=== PATIENT | female | born 1945 | race Caucasian/White ===

== ENCOUNTER 2016-09-16 15:25 | Emergency (ER) | payer MEDICARE ==
--- NOTE | 2016-09-16 15:54 | UC ---
Respiratory Complaint HPI - HPI Summary HPI Summary: 1 WEEK OF COUGH, CONGESTION AND RIGHT SIDED SINUS PRESSURE AND LONG. FEELS WHEEZY BUT NOT SOB. NO FEVER, ST, N/V/D. DENIES DIZZINESS OR BLURRY VISION. STATES SX GOT A LOT WORSE LAST NIGHT AND TODAY SHE FEELS "AWFUL". TERRIBLE PAIN IN RIGHT SIDE OF HEAD. PT IS HOLDING ICE PACK TO HEAD. HAS A H/O HTN BUT DOES NOT TAKE ANY MEDS. PCP DR. HERNANDEZ. - History of Current Complaint Chief Complaint: UCRespiratory Stated Complaint: URI Time Seen by Provider: 09/16/16 15:41 Hx Obtained From: Patient Onset/Duration: Gradual Onset, Lasting Days, Still Present Timing: Constant Severity Initially: Moderate Severity Currently: Severe Pain Intensity: 9 Pain Scale Used: 0-10 Numeric Character: Cough: Nonproductive Aggravating Factors: Nothing Alleviating Factors: OTC Meds - DAYQUIL Associated Signs And Symptoms: Positive: URI, Nasal Congestion, Sinus Discomfort. Negative: Dyspnea, Fever, Chills, Pleuritic Chest Pain, Wheezing, Hemoptysis, Dizziness, Calf Pain, Calf Swelling, Edema - Allergies/Home Medications Allergies/Adverse Reactions: Allergies Allergy/AdvReac Type Severity Reaction Status Date / Time Magnesium Hydroxide Allergy Intermediate Unknown Verified 09/16/16 15:39 [From Milk of Magnesia] Reaction Details Statins Allergy Intermediate Muscle Ache Verified 09/16/16 15:39 Home Medications: Home Medications Glaucoma Eye Drops 1 drop QPM 09/16/16 [History] PMH/Surg Hx/FS Hx/Imm Hx - Additional Past Medical History Additional PMH: GLAUCOMA Endocrine History Of: Reports: Diabetes Denies: Thyroid Disease Cardiovascular History Of: Reports: Hypertension - No meds Denies: Cardiac Disorders Respiratory History Of: Denies: COPD, Asthma GI/ History Of: Reports: Renal Disease - IDDM/ HTN Denies: Ulcer Cancer History Of: Denies: Breast Cancer - Surgical History Surgical History: Yes Surgery Procedure, Year, and Place: Left ankle surgery, hernia repair 2007, spine surgery, cholecystectomy - Family History Known Family History: Positive: Hypertension - Social History Alcohol Use: Occasionally Substance Use Type: None Smoking Status (MU): Never Smoked Tobacco - Immunization History Most Recent Influenza Vaccination: 2016 Most Recent Tetanus Shot: Unk Most Recent Pneumonia Vaccination: UTD Review of Systems Constitutional: Negative ENT: Nasal Discharge Respiratory: Cough Cardiovascular: Negative Gastrointestinal: Negative Neurological: Headache All Other Systems Reviewed And Are Negative: Yes Physical Exam Triage Information Reviewed: Yes Appearance: Well-Appearing, Well-Nourished, Pain Distress - MILD Vital Signs: Initial Vital Signs Temp 98.4 F 09/16/16 15:42 Pulse 93 09/16/16 15:42 Resp 18 09/16/16 15:42 Pulse Ox 96 09/16/16 15:42 Vital Signs Reviewed: Yes Eyes: Positive: Conjunctiva Clear ENT: Positive: Hearing grossly normal, Pharynx normal, TMs normal Neck: Positive: Supple, Nontender, No Lymphadenopathy Respiratory: Positive: No respiratory distress, No accessory muscle use, Rhonchi - DIFFUSE, MILD RHONCHI Cardiovascular Exam: Normal Abdomen Description: Positive: Soft Musculoskeletal: Positive: No Edema Neurological: Positive: Alert Psychological: Positive: Age Appropriate Behavior Skin: Negative: rashes UC Diagnostic Evaluation - Laboratory O2 Sat by Pulse Oximetry: 96 - EKG Cardiac Rate: NL - 91 BPM Cardiac Rhythm: LBBB: New Ectopy: None Respiratory Course/Dx - Course Course Of Treatment: LONG DISCUSSION WITH PT ABOUT SERIOUS NATURE OF CONDITION - DANGEROUSLY ELEVATED BP, NEW LEFT BUNDLE BRANCH BLOCK IN ADDITION TO RESPIRATORY CONDITION. ADVISED THAT SHE COULD DECOMPENSATE AND THAT [facility]MEND[facility]. PT DECLINES TRANSFER TO [facility] [place]. WANTS TO GO TO [facility]. AMA FORM SIGNED. - Differential Dx/Diagnosis Provider Diagnoses: 1. LBBB - NEW. 2. HYPERTENSIVE URGENCY. 3. ACUTE BRONCHITIS Discharge - Discharge Plan Condition: Stable Disposition: AGAINST MEDICAL ADVICE Referrals: Compa Hernandez MD [Primary Care Provider] -
[2016-09-16 15:57] VITALS: BP 200/95
[2016-09-16] MEDS ORDERED: Acetaminophen TAB* 325 MG PO ONE (16:38)
== END 2016-09-16 16:55 | disposition left against medical advice (07) ==
LOC: UCEAST 15:25
DX: J40 Bronchitis, not specified as acute or chronic (principal); I44.7 Left bundle-branch block, unspecified; I16.0 Hypertensive urgency; E11.22 Type 2 diabetes mellitus with diabetic chronic kidney disease
CPT/HCPCS: 93005; 99212; A9270-GY; G0463

== ENCOUNTER 2017-07-18 18:32 | Emergency (ER) | payer MEDICARE ==
[2017-07-18] MEDS ORDERED: Azithromycin TAB* 250 MG PO ONE (20:39)
[2017-07-18 20:59] VITALS: BP 164/74
--- NOTE | 2017-07-20 19:37 | ED ---
Aung Burleson Abhishek, scribed for Brynn Shipley MD on 07/18/17 at 2042 . Neck Pain - HPI Summary HPI Summary: This patient is a 71 year old F presenting to [facility] accompanied by friend with a chief complaint of neck pain since few days ago. The pain is described as radiating to the cheeks and ears. The patient states she was given a flu shot while she was sick. Medications were reviewed; the patient states she stopped taking blood pressure medication, and they cant give her cholesterol medication due to myalgia. The patient rates the pain 8/10 in severity. Symptoms aggravated by activity such as coughing Symptoms alleviated by nothing. Patient reports difficulty swallowing, body aches, fever and Hypertensive, edema on a LE. Patient denies chest pain, SOB, and blurred vision * - History of Current Complaint Chief Complaint: EDNeckComplaint Stated Complaint: NECK PAIN Hx Obtained From: Patient, Other: - friend Onset/Duration Of Injury/Symptoms: Days - few days ago Timing: Constant Onset/Duration: Gradual Onset, Started days ago - few days ago, Still Present Severity Initially: Severe Severity Currently: Severe Pain Intensity: 8 Pain Scale Used: 0-10 Numeric Location: Radiates To: - ears and cheeks Aggravating Factors: Nothing Alleviating Factors: Nothing Associated Signs & Symptoms: Positive: Swelling - LE, Fever - Allergies/Home Medications Allergies/Adverse Reactions: Allergies Allergy/AdvReac Type Severity Reaction Status Date / Time Magnesium Hydroxide Allergy Intermediate Unknown Verified 09/16/16 15:39 [From Milk of Magnesia] Reaction Details Statins Allergy Intermediate Muscle Ache Verified 09/16/16 15:39 PMH/Surg Hx/FS Hx/Imm Hx Endocrine/Hematology History: Reports: Hx Diabetes Denies: Hx Thyroid Disease Cardiovascular History: Reports: Hx Hypertension - No meds Respiratory History: Denies: Hx Asthma, Hx Chronic Obstructive Pulmonary Disease (COPD) GI History: Denies: Hx Ulcer History: Reports: Hx Renal Disease - IDDM/ HTN Musculoskeletal History: Denies: Hx Rheumatoid Arthritis, Hx Osteoporosis - Cancer History Hx Chemotherapy: No Hx Radiation Therapy: No - Surgical History Surgery Procedure, Year, and Place: Left ankle surgery, hernia repair 2007, spine surgery, cholecystectomy Infectious Disease History: No Infectious Disease History: Reports: Hx of Known/Suspected MRSA Denies: Hx Hepatitis, Hx Human Immunodeficiency Virus (HIV), Traveled Outside the [place] in Last 30 Days - Family History Known Family History: Positive: Hypertension, Other - Reviewed and noncontributory - Social History Lives: With Family Alcohol Use: Occasionally Substance Use Type: Reports: None Smoking Status (MU): Never Smoked Tobacco Review of Systems Positive: Fever ENT: Other - difficulty swallowing Cardiovascular: Other - hypertensive Negative: Cough Gastrointestinal: Other - hematochezia Negative: Vomiting, Nausea Negative: burning, hematuria Musculoskeletal: Other - neck pain Positive: Myalgia - body aches Skin: Negative Neurological: Negative Psychological: Normal All Other Systems Reviewed And Are Negative: No Physical Exam - Summary Physical Exam Summary: Appearance: Alert, conversive, nontoxic appearing Skin: Warm, dry, no mottling, no rashes, no contusions HEENT: EOMI, PERRL, Post pharyngeal erythema Neck: No masses on the neck, supple Respiratory: Clear to auscultation, breath sounds present, no rales, no rhonchi , no wheezes Cardiovascular: RRR, pulses are symmetrical in both lower and upper extremities Abdomen: Soft, non-tender Bowel Sounds: Present Musculoskeletal: Post-Surgical Adenopathy on the left Neurological: A&Ox3, CN II-XII Intact, moving all extremities symmetrically Psychiatric: Normal affect and mood Triage Information Reviewed: Yes Vital Signs On Initial Exam: Initial Vitals Temp Pulse Resp BP Pulse Ox 100.9 F 92 18 165/121 96 07/18/17 18:34 07/18/17 18:34 07/18/17 18:34 07/18/17 18:34 07/18/17 18:34 Vital Signs Reviewed: Yes - Isabelle Coma Scale Coma Scale Total: 15 Diagnostics - Vital Signs Vital Signs Temp Pulse Resp BP Pulse Ox 07/18/17 18:34 100.9 F 92 18 165/121 96 - Laboratory Lab Statement: Any lab studies that have been ordered have been reviewed, and results considered in the medical decision making process. Neck Course/Dx - Course Course Of Treatment: The patient will be discharged home. The dx will be URI and hypertension. The patient is recommended to follow up with her PCP as needed and given medication (Azithromycin). - Diagnoses Provider Diagnoses: Hypertension, URI (upper respiratory infection) Discharge - Discharge Plan Condition: Stable Disposition: HOME Prescriptions: Azithromycin TAB* [Zithromax TAB (Z-SHIV) 250 mg #6 tabs] 250 mg PO DAILY 4 Days #4 tab Patient Education Materials: Upper Respiratory Infection (ED), Hypertension (ED ) Referrals: Caesar Galaviz MD [Primary Care Provider] - Additional Instructions: Take the azithromycin as instruction. Return if worse or any new symptoms. Please make an appt with your doctor to discuss your hypertension and the need to be on medications. Take tylenol and motrin for pain. The documentation as recorded by the Aung colunga Abhishek accurately reflects the service I personally performed and the decisions made by , Brynn Shipley MD.
== END 2017-07-18 20:58 | disposition home or self-care (01) ==
LOC: ED 18:32
DX: J06.9 Acute upper respiratory infection, unspecified (principal); I10 Essential (primary) hypertension; M54.2 Cervicalgia; E11.9 Type 2 diabetes mellitus without complications; Z86.14 Personal history of Methicillin resistant Staphylococcus aureus infection; Z90.49 Acquired absence of other specified parts of digestive tract
CPT/HCPCS: 99282; A9270-GY

== ENCOUNTER 2018-08-17 00:30 | Observation (INO) | payer MEDICARE ==
--- NOTE | 2018-08-17 00:38 | ED ---
Abdominal Pain/Female - HPI Summary HPI Summary: A 72 y/o F brought in by ambulance presents to ED with c/o intermittent lower abd pain, moreso on R, onset hours [employer]. The pain is described as cramping. At bedside, she rates her abd pain as 0 out of 10. Pt felt OK earlier in the day. She ate mild tacos with beef today. She does not normally eat beef. A few hours later, she began to have lower abd pain. Associated sx: bloating. Denies CP, SOB , n/v, urinary sx, constipation. Aggravating: movement. PMHx: HTN, DM, HDL. Cholecystectomy, she says she has mesh in her abd. Her last surgery was in 2007. Patient lives alone. - History of Current Complaint Stated Complaint: ABD PAIN Hx Obtained From: Patient Onset/Duration: Lasting Hours, Still Present Timing: Intermittent Episode Lasting Severity Initially: Moderate Severity Currently: Mild Pain Intensity: 0 Pain Scale Used: 0-10 Numeric Location: Diffuse - lower Character: Cramping Aggravating Factor(s): Movement Associated Signs and Symptoms: Positive: Other: - pos: bloating. neg: SOB.. Negative: Chest Pain, Constipation, Urinary Symptoms, Nausea, Vomiting Allergies/Adverse Reactions: Allergies Allergy/AdvReac Type Severity Reaction Status Date / Time MS Magnesium Hydroxide Allergy Intermediate Unknown Verified 09/16/16 15:39 [From Milk of Magnesia] Reaction Details MS Statins [Statins] Allergy Intermediate Muscle Ache Verified 09/16/16 15:39 PMH/Surg Hx/FS Hx/Imm Hx Previously Healthy: No Endocrine/Hematology History: Reports: Hx Diabetes Denies: Hx Thyroid Disease Cardiovascular History: Reports: Hx Hypercholesterolemia, Hx Hypertension - No meds Respiratory History: Denies: Hx Asthma, Hx Chronic Obstructive Pulmonary Disease (COPD) GI History: Denies: Hx Ulcer History: Reports: Hx Renal Disease - IDDM/ HTN Musculoskeletal History: Denies: Hx Rheumatoid Arthritis, Hx Osteoporosis - Cancer History Hx Chemotherapy: No Hx Radiation Therapy: No - Surgical History Surgery Procedure, Year, and Place: Left ankle surgery, hernia repair 2007, spine surgery, cholecystectomy Infectious Disease History: Reports: Hx of Known/Suspected MRSA Denies: Hx Hepatitis, Hx Human Immunodeficiency Virus (HIV) - Family History Known Family History: Positive: Hypertension - Social History Occupation: Retired Lives: Alone Alcohol Use: Occasionally Hx Substance Use: No Substance Use Type: Reports: None Hx Tobacco Use: No Smoking Status (MU): Never Smoked Tobacco Review of Systems Negative: Chest Pain Negative: Shortness Of Breath Positive: Abdominal Pain, Other - pos: bloated. neg: constipation. Negative: Vomiting, Nausea Negative: dysuria, hematuria All Other Systems Reviewed And Are Negative: Yes Physical Exam - Summary Physical Exam Summary: Appearance: Well-appearing, Well-nourished, lying in bed comfortably Skin: Warm, dry, no obvious rash Eyes: sclera anicteric, no conjunctival pallor ENT: mucous membranes moist, pharynx appears normal Neck: Supple, nontender Respiratory: Clear to auscultation, no signs of respiratory distress Cardiovascular: Normal S1, S2. No murmurs. Normal distal pulses in tibial and radial bilaterally. Abdomen: Soft, nontender, normal active bowel sounds present, no hernias Musculoskeletal: Normal, Strength/ROM Intact Neurological: A&Ox3, awake and alert, mentation is normal, speech is fluent and appropriate Psychiatric: affect is normal, does not appear anxious or depressed Triage Information Reviewed: Yes Vital Signs Reviewed: Yes Diagnostics - Laboratory Result Diagrams: 08/17/18 00:55 08/17/18 00:55 Lab Statement: Any lab studies that have been ordered have been reviewed, and results considered in the medical decision making process. - CT A/P CT CT Interpretation Completed By: Radiologist Summary of CT Findings: IMPRESSION: 1. Mucosal thickening in the distal small bowel. Mesenteric descending with. mild ascites in the right paracolic gutter extending to the pelvis. Differential diagnosis includes acute diverticulitis and enteritis. No evidence. of bowel obstruction. 2. Colonic diverticulosis. 3. A small hiatal hernia. 4. A 3 mm calcific density in the right kidney which may represent. nonobstructing stones versus vascular calcification. No hydronephrosis. 5. Pneumobilia in the left hepatic lobe and within common bile duct. 6. A 0.7 cm left adrenal nodule. ED provider has reviewed this report. - EKG 0124 Cardiac Rate: NL - 66 bpm EKG Rhythm: Sinus Rhythm Summary of EKG Findings: LBBB Re-Evaluation - Re-Evaluation 1 Re-Evaluation Time: 04:39 Change: Improved Comment: Pain is controlled. Discussing CT results and possibility for admission. Abdominal Pain Fem Course/Dx - Course Course Of Treatment: Pt is a 72 y/o F brought in by ambulance presents to ED with c/o intermittent lower abd pain, moreso on R, onset hours [employer]. The pain is described as cramping. At bedside, she rates her abd pain as 0 out of 10. Pt felt OK earlier in the day. She ate mild tacos with beef today. She does not normally eat beef. A few hours later, she began to have lower abd pain. Associated sx: bloating. Denies CP, SOB, nausea, urinary sx, constipation. Aggravating: movement. PMHx: HTN, DM, HDL. Cholecystectomy with mesh in her abd. Her last surgery was in 2007. Patient lives alone. UA results show 1+ leukocyte esterase, 2+ glucose, and squamous epithelia and ascorbic acid are both present. EKG shows NSR at 66 bpm and LBBB. A/P CT shows "1. Mucosal thickening in the distal small bowel. Mesenteric descending with mild ascites in the right paracolic gutter extending to the pelvis. Differential diagnosis includes acute diverticulitis and enteritis. No evidence of bowel obstruction. 2. Colonic diverticulosis. 3. A small hiatal hernia. 4. A 3 mm calcific density in the right kidney which may represent. nonobstructing stones versus vascular calcification. No hydronephrosis. 5. Pneumobilia in the left hepatic lobe and within common bile duct. 6. A 0.7 cm left adrenal nodule.". Consulted with Dr. Way, hospitalist, who will see pt in ED. Dr. Way will admit patient. - Diagnoses Provider Diagnoses: Diverticulitis - Provider Notifications Discussed Care Of Patient With: Dania aWy - hospitalist Time Discussed With Above Provider: 04:46 Instructed by Provider To: Will See In ED - Will admit pt. Discharge - Sign-Out/Discharge Documenting (check all that apply): Patient Departure - ADMIT Patient Received Moderate/Deep Sedation with Procedure: No - Discharge Plan Condition: Stable Disposition: ADMITTED TO [facility] Referrals: Caesar Galaviz MD [Primary Care Provider] - - Attestation Statements Document Initiated by Scribe: Yes Documenting Scribe: Zoila Marcus Provider For Whom Scribe is Documenting (Include Credential): Dr. Mian Watters MD Scribe Attestation: I, Zoila Marcus, scribed for Dr. Mian Watters MD on 08/17/18 at 0533. Status of Scribe Document: Ready
[2018-08-17] MEDS ORDERED: NS 0.9% 1000 ML** 1,000 ML IV ONE (00:40)
[2018-08-17 01:05] LABS: ABS Basophils 0 10^3/ul (0-0.2); ABS Eosinophils 0.2 10^3/ul (0-0.6); ABS Monocytes 0.9 10^3/ul (0-0.8); ABS Neutrophils 10.1 10^3/ul (1.5-7.7); ABS Nucleated RBC 0 10^3/ul; Eosinophil % 1.7 %; Hematocrit 38 % (35-47); Hemoglobin 12.4 g/dl (12.0-16.0); Lymphocyte % 15.1 %; Mean Corpuscular HGB Conc 32 g/dl (31-36); Mean Corpuscular Hemoglobin 26 pg (27-31); Mean Corpuscular Volume 80 fL (80-97); Mean Platelet Volume 8.7 fL (7.4-10.4); Nucleated Red Blood Cells % 0; Platelet Count 237 10^3/ul (150-450); Red Blood Count 4.78 10^6/ul (4.00-5.40); Red Cell Distribution Width 16 % (10.5-15); White Blood Count 13.2 10^3/ul (3.5-10.8)
[2018-08-17 01:23] LABS: Albumin 3.8 g/dL (3.2-5.2); Albumin/Globulin Ratio 1.1 (1-3); BUN/Creatinine Ratio 36.1 (8-20); Calcium 9.2 mg/dL (8.6-10.3); EGFR Non-African American 95.9 (>60); Globulin 3.4 g/dL (2-4); Total Bilirubin 0.5 mg/dL (0.2-1.0); Total Protein 7.2 g/dL (6.4-8.9)
[2018-08-17 01:47] LABS: Potassium 3.9 mmol/L (3.5-5.0)
[2018-08-17 01:51] LABS: Urine Appearance Clear; Urine Bacteria Absent (Absent); Urine Bilirubin Negative (Negative); Urine Blood Negative (Negative); Urine Color Yellow; Urine Glucose 2+(150 mg/dL) (Negative); Urine Ketones Negative (Negative); Urine Nitrite Negative (Negative); Urine Protein Negative (Negative); Urine Red Blood Cell Absent (Absent); Urine Specific Gravity 1.023 (1.010-1.030); Urine Squamous Epithelial Cell Present (Absent); Urine Urobilinogen Negative (Negative); Urine White Blood Cell Trace(0-5/hpf) (Absent)
[2018-08-17] MEDS ORDERED: Iodixanol* (CONTRAST) 320 MG/ML 100 ML SDV IV ONE (03:04)
[2018-08-17] MEDS ORDERED: Piperacillin/Tazobac ADVAN(*) 3.375 GM in NS 0.9% 100 ML* 100 ML IVPB ONE (04:40)
[2018-08-17] MEDS ORDERED: NS 0.9% 100 ML* 100 ML ONE (04:50)
[2018-08-17 05:16] LABS: C Reactive Protein 11.9 mg/L (<8.01)
[2018-08-17] MEDS ORDERED: Dextrose 50% Syringe 50 ML* 25 GM/50 ML SYRINGE IV PUSH PRN (05:53)
[2018-08-17] MEDS ORDERED: Morphine INJ* 2 MG/ML 1 ML SYRINGE (TWO MG - NEW SYRINGE VERSION) IV PRN (05:55)
[2018-08-17] MEDS ORDERED: Ondansetron INJ* 2 MG/ML VIAL IV PRN (05:55)
[2018-08-17] MEDS ORDERED: Acetaminophen TAB* 325 MG PO PRN (05:55)
[2018-08-17] MEDS ORDERED: Al Hydrox/Mg Hydrox/Simet LIQ* 30 ML UDC PO PRN (05:55)
[2018-08-17] MEDS ORDERED: oxyCODONE/Acetamin 5/325 MG* TAB PO PRN (05:55)
[2018-08-17] MEDS ORDERED: Heparin VIAL(*) 5000 UNITS/ML VIAL (FIVE THOUSAND) SUBCUT SCH (06:00)
[2018-08-17] MEDS ORDERED: NS 0.9% 1000 ML** 1,000 ML IV SCH (06:00)
[2018-08-17] MEDS ORDERED: Zosyn per Pharmacy* NOTE FOLLOW UP PRN (07:22)
[2018-08-17] MEDS: Insulin LISPRO* 1 UNITS UNIT SUBCUT SCH ×2 (08:58→12:29)
[2018-08-17] MEDS ORDERED: Aspirin EC TAB* 81 MG TAB.EC PO SCH (09:00)
[2018-08-17] MEDS ORDERED: Piperacillin/Tazobac ADVAN(*) 3.375 GM in NS 0.9% 100 ML* 100 ML IVPB SCH (09:00)
[2018-08-17] MEDS ORDERED: Latanoprost 0.005%* 2.5 ml BTL RIGHT EYE SCH (09:00)
--- NOTE | 2018-08-17 11:47 | HP ---
CC: Dr. Galaviz * HISTORY AND PHYSICAL: DATE OF ADMISSION: 08/17/18 PRIMARY CARE PROVIDER: Dr. Galaviz. CHIEF COMPLAINT: Abdominal pain. HISTORY OF PRESENT ILLNESS: Janelle is a 72-year-old female with history of diabetes, hypertension, asthma who presented to the hospital complaining of crampy abdominal pain after she ate tacos today in the evening. The patient stated that the meat for the tacos was sitting defrosted for a couple of days until she cooked it. After she ate her dinner approximately an hour later, she started having crampy abdominal pain "all over." That pain was "building up to her chest." She denies any nausea or vomiting. She stated that eventually after she presented to the ED with the pain, the pain somewhat eased off and she started having diarrhea. She had a multiple episodes of diarrhea in the emergency room including one episode of bowel incontinence. Currently, her pain is 0/10, but she is photographer still in the right lower quadrant. Under the ED provider's recommendation, the patient is going to be placed on overnight observation with a diagnosis of likely diverticulosis. PAST MEDICAL HISTORY: 1. History of diabetes. 2. History of dyslipidemia. 3. History of hypertension. 4. Asthma. 5. History of aneurysm of splenic artery. 6. History of anxiety. 7. Degenerative disk disease. 8. History of left bundle-branch block. 9. History of left ankle fracture. 10. History of cholecystectomy in 2006, complicated postoperative septic shock and peritonitis. 11. History of incisional hernia repair in 2007. 12. History of cataract surgery on the left. 13. History of laminectomy in 1984. MEDICATIONS: At home include: 1. Saxagliptin 5 mg daily. 2. Xalatan eye drops 1 drop right eye daily. 3. Glipizide 10 mg b.i.d. 4. Glaucoma eye drops 1 drop q.p.m. 5. Aspirin 81 mg daily. 6. Ascorbic acid 1000 mg daily. ALLERGIES: MAGNESIUM HYDROXIDE and STATINS. FAMILY HISTORY: Positive for father who of pneumonia at the age of 77. Mother with history of diabetes who of stroke at the age of 74. SOCIAL HISTORY: The patient lives alone. There is no history of alcohol, drug use, or current tobacco use. She quit smoking in 1993. Her surrogate is her daughter, Claudia Reyna. REVIEW OF SYSTEMS: Please see history of present illness. All the remaining 12 systems were reviewed with the patient and were otherwise negative. PHYSICAL EXAMINATION GENERAL: The patient is a very pleasant 72-year-old female who is in no acute distress. Alert, awake and oriented x3. VITAL SIGNS: Blood pressure 162/83, heart rate of 72 and regular, respiratory rate 15, oxygen saturation 96% on room air, temperature 98.4. HEENT: Head: Atraumatic, normocephalic. Eyes: Pupils are equal, reactive to light and accommodation. Oropharynx clear. Mucosa moist. NECK: Supple. No JVD. No bruits bilaterally. RESPIRATORY: Clear to auscultation bilaterally. CARDIOVASCULAR: Regular rate and rhythm. No murmur. ABDOMEN: Soft, tender in right lower quadrant and lower mid abdomen with no rebound and no guarding. Bowel sounds are present in all 4 quadrants. EXTREMITIES: There is no edema. Pulses are +2 bilaterally. No clubbing or cyanosis. NEURO EVALUATION: Speech is clear. Cranial nerves II through XII grossly intact. Motor strength is 5/5 bilaterally. DIAGNOSTIC STUDIES/LAB DATA: Showed a sodium of 136, potassium 3.9, chloride 102, carbon dioxide 26, BUN 22, creatinine 0.6. Liver function tests unremarkable. C-reactive protein of 11.9, lipase of 94. White blood cell count of 13.2, hemoglobin of 12.4, hematocrit of 38, and platelets of 237. Urinalysis showed trace esterase, also present squamous epithelial cells, otherwise unremarkable. CT of the abdomen and pelvis, impression: "Mucosal thickening of the distal small bowel, mesenteric distending with mild ascites of the right paracolic gutter extending to the pelvis. Differential diagnosis includes acute diverticulitis or enteritis. No evidence of bowel obstruction. Colonic diverticulosis. A small hiatal hernia. A 3-mm calcified density in the right kidney, which may represent an obstructive stone versus vascular calcification. No hydronephrosis. Pneumobilia of the left hepatic lobe with a thin common bile duct. A 0.7 cm length adrenal nodule." The patient's EKG showed no left bundle-branch block with a high of 66 beats per minute. ASSESSMENT AND PLAN: 1. A 72-year-old female presented with abdominal pain after eating tacos today. Subsequently, she developed diarrhea. CT shows likely diverticulitis. The patient is going to be placed on overnight observation. She is going to be placed on clear liquid diet. We will obtain stool cultures and continue Zosyn that was started in the emergency room. 2. In regard to the patient's diabetes, the patient's oral hypoglycemics are going to be held and she is going to be placed on insulin sliding scale. 3. The patient's code status is full and her surrogate is her daughter. 4. For DVT prophylaxis, the patient is going to be placed on heparin subcutaneously. TIME SPENT: Approximately 55 minutes was spent on the admission of this patient , more than half of that time was spent [id number] with the patient during the interview and physical exam. [id number]/[facility] #: [id number] [place]
[2018-08-17 12:24] VITALS: BP 157/69
--- NOTE | 2018-08-18 04:37 | DS ---
DISCHARGE SUMMARY: DATE OF ADMISSION: 08/17/18 DATE OF DISCHARGE: 08/17/18 ADMITTING PROVIDER: Dr. Dania Way. ATTENDING PHYSICIAN ON DAY OF DISCHARGE: Pablo Henry MD PRIMARY CARE PROVIDER: Dr. Galaviz. CHIEF COMPLAINT: Abdominal pain, bloating, and then diarrhea. PRINCIPAL DIAGNOSES: Distal small bowel diverticulitis versus enteritis causing abdominal pain, bloating, and diarrhea. HISTORY OF PRESENT ILLNESS AND HOSPITAL COURSE: Janelle Reyna is a 72-year-old female with past medical history of [id number] diabetes mellitus, hypertension, asthma, hyperlipidemia, hernia repair in 2007 with routine mesh, and cholecystectomy in 2006, complicated by septic shock and peritonitis. She was in her normal state of health, when she ate some tacos with meat that had defrosted in the fridge for 2 days and also ate a quarter cup of roasted peanuts. A few hours after the tacos, she complained of right lower quadrant abdominal pain and abdominal bloating. She presented to the emergency room and there had multiple episodes of diarrhea. She was referred to the hospitalist service for admission after a CT abdomen and pelvis demonstrated, Impression: 1. Mucosal thickening in the distal small bowel. Mesenteric (I assume this is meant to be "stranding" instead of distending) with mild ascites in the right paracolic gutter extending into the pelvis. Differential diagnosis includes acute diverticulitis and enteritis. No evidence of bowel obstruction. 2. Colonic diverticulosis. 3. A small hiatal hernia. 4. A 3-mm calcific density in the right kidney, which may represent an obstructing stone versus vascular calcification. No hydronephrosis. 5. Pneumobilia in the left hepatic lobe and within the common bile duct. 6. A 0.7-cm left adrenal nodule." She had a slight leukocytosis of 13.2. CRP of 11.9 with a lipase minimally elevated at 94. Urinalysis was negative. She was afebrile, hemodynamically stable. She was admitted on observation status and continued on the Zosyn started in the emergency room. She felt much better within a few hours, was ambulating in the halls, had no return of the diarrhea, was a bit anxious about the diagnosis, but feeling well and anxious to go home. She is being discharged with 10 days of Cipro and Flagyl on recommendation to follow up with her primary care provider within the next week. DISCHARGE MEDICATIONS: Include: 1. Ascorbic acid 1000 mg p.o. daily. 2. Aspirin 81 mg daily. 3. Ciprofloxacin 500 mg p.o. b.i.d. ( 20 tabs) new. 4. Glaucoma eye drops, 1 drop right eye q.p.m. 5. Glipizide 10 mg p.o. b.i.d. 6. Xalatan 0.005% ophthalmic solution 1 drop right eye daily. 7. Flagyl 500 mg p.o. t.i.d. for 30 days (new). 8. Saxagliptin 5 mg p.o. daily. DISCHARGE DIET: Carbohydrate consistent, heart healthy, unchanged. FOLLOWUP: Please follow up with Dr. Galaviz within the next 7 to 10 days. She is also asking about referral for an wrapper sizer. I have given the name of a new wrapper sizer, Dr. Gary Dent, in [facility] and to call their office if she wants to establish care with him. TIME SPENT: On discharge was 35 minutes. [id number]/[facility] #: [id number] [place]
== END 2018-08-17 13:15 | disposition home or self-care (01) ==
LOC: ED 00:30 → MED 05:28
PROVIDERS: ADMIT Internal Medicine; ATTEND Internal Medicine
DX: R10.9 Unspecified abdominal pain (principal); R19.7 Diarrhea, unspecified; K52.9 Noninfective gastroenteritis and colitis, unspecified; K44.9 Diaphragmatic hernia without obstruction or gangrene; Z79.82 Long term (current) use of aspirin; E11.9 Type 2 diabetes mellitus without complications; E78.5 Hyperlipidemia, unspecified; I10 Essential (primary) hypertension; J45.909 Unspecified asthma, uncomplicated; M51.34 Other intervertebral disc degeneration, thoracic region; I44.7 Left bundle-branch block, unspecified; Z98.1 Arthrodesis status; Z87.81 Personal history of (healed) traumatic fracture
CPT/HCPCS: 36415; 74177; 80053; 81003; 81015; 83690; 85025; 86140; 87086; 93005; 96374; 96375; 99284; A9270-GY; G0378; J2543; Q9967